=== PATIENT | male | born 1995 | race Two or more races ===

== ENCOUNTER 2017-03-26 21:58 | Emergency (ER) | payer OTHER ==
[2017-03-26 22:08] VITALS: BP 135/40
[2017-03-26] MEDS ORDERED: HYDR30CR61 TP (22:20)
[2017-03-26] MEDS ORDERED: HYDR25SU18 RC (22:20)
--- NOTE | 2017-03-26 22:20 | PHYS DOC ---
Adult General Chief Complaint Chief Complaint: HEMORRHOIDS HPI HPI Patient is a 21 year old to the emergency department with complaints of hemorrhoids. Patient states that 4 days ago he had a PT test and he forced himself to defecate prior to the test. He states at that time he developed a hemorrhoid. He has no complaints of abdominal pain. No bloody stools. No constipation. Review of Systems Review of Systems Constitutional: Denies fever or chills [] Eyes: Denies change in visual acuity, redness, or eye pain [] HENT: Denies nasal congestion or sore throat [] Respiratory: Denies cough or shortness of breath [] Cardiovascular: No additional information not addressed in HPI [] GI: Denies abdominal pain, nausea, vomiting, bloody stools or diarrhea, hemorrhoids [] : Denies dysuria or hematuria [] Musculoskeletal: Denies back pain or joint pain [] Integument: Denies rash or skin lesions [] Neurologic: Denies headache, focal weakness or sensory changes [] Endocrine: Denies polyuria or polydipsia [] Physical Exam Physical Exam Constitutional: Well developed, well nourished, no acute distress, non-toxic appearance. [] HENT: Normocephalic, atraumatic, bilateral external ears normal, oropharynx moist, no oral exudates, nose normal. [] Eyes: PERRLA, EOMI, conjunctiva normal, no discharge. [] Neck: Normal range of motion, no tenderness, supple, no stridor. [] Cardiovascular:Heart rate regular rhythm, no murmur [] Lungs & Thorax: Bilateral breath sounds clear to auscultation [] Abdomen: Bowel sounds normal, soft, no tenderness, no masses, no pulsatile masses. Rectal exam: External hemorrhoid, nonthrombosed. [] Skin: Warm, dry, no erythema, no rash. [] Back: No tenderness, no CVA tenderness. [] Extremities: No tenderness, no cyanosis, no clubbing, ROM intact, no edema. [] Neurologic: Alert and oriented X 3, normal motor function, normal sensory function, no focal deficits noted. [] Psychologic: Affect normal, judgement normal, mood normal. [] EKG EKG [] Radiology/Procedures Radiology/Procedures [] Course & Med Decision Making Course & Med Decision Making Pertinent Labs and Imaging studies reviewed. (See chart for details) [] Dragon Disclaimer Dragon Disclaimer This electronic medical record was generated, in whole or in part, using a voice recognition dictation system. Departure Departure Impression: Primary Impression: Hemorrhoids Disposition: 01 HOME, SELF-CARE Condition: STABLE Referrals: NO PCP (PCP) [facility] Patient Instructions: Hemorrhoids Scripts Hydrocortisone (ANUSOL-HC) 30 Gm Cream..g. 1 NESTOR TP BID, #30 GM 1 Refill Prov: MARANDA BREWER APRN 03/26/17 Hydrocortisone Acetate (ANUSOL-HC) 25 Mg Supp.rect 1 SUPP RC BID, #14 SUPP Prov: MARANDA BREWER APRN 03/26/17 Problem Qualifiers Primary Impression: Hemorrhoids Hemorrhoid type: unspecified Qualified Codes: K64.9 - Unspecified hemorrhoids MARANDA BREWER APRN Mar 26, 2017 22:20
== END 2017-03-26 22:30 | disposition home or self-care (01) ==
LOC: ER 21:58
DX: K64.4 Residual hemorrhoidal skin tags (principal)
CPT/HCPCS: 99283